=== PATIENT | male | born 1975 | race Caucasian/White ===

== ENCOUNTER 2022-03-08 02:19 | Emergency (ER) | payer OTHER ==
[~2022-03-08] VITALS: Ht 185.4 cm
[2022-03-08] MEDS ORDERED: HYDROCODON-ACE1 EA10 PO (03:22)
== END 2022-03-08 03:48 | disposition home or self-care (01) ==
LOC: ED 02:19
DX: S50.11XA Contusion of right forearm, initial encounter (principal); S40.212A Abrasion of left shoulder, initial encounter; S90.811A Abrasion, right foot, initial encounter; Z23 Encounter for immunization; V69.9XXA Occupant (driver) (passenger) of heavy transport vehicle injured in unspecified traffic accident, initial encounter
CPT/HCPCS: 71046; 73030; 73090; 90471; 90714; 99284-25; A9270